=== PATIENT | male | born 1990 | race Caucasian/White ===

== ENCOUNTER 2017-07-17 11:02 | Emergency (ER) | payer OTHER ==
[~2017-07-17] VITALS: Ht 170.2 cm; Wt 83.9 kg
[2017-07-17 11:02] VITALS: BP 122/74
[2017-07-17] MEDS ORDERED: LIDOCAINE 0.5% HCL 50 ML VIAL ONE (11:27)
[2017-07-17] MEDS ORDERED: LIDOCAINE 1% INJ 50 ML MDV IJ ONE (11:30)
[2017-07-17] MEDS ORDERED: CEFAZOLIN 2 GM in IV D5W 100 ML IV ONE (11:30)
[2017-07-17] MEDS ORDERED: HYDROCODONE/APAP 10/325MG 1 EA TABLET ONE (13:18)
[2017-07-17] MEDS ORDERED: HYDROCODONE/APAP 10/325MG 1 EA TABLET PO ONE (13:30)
== END 2017-07-17 13:21 | disposition home or self-care (01) ==
LOC: ER 11:05
DX: S61.012A Laceration without foreign body of left thumb without damage to nail, initial encounter (principal); W45.8XXA Other foreign body or object entering through skin, initial encounter; Y93.89 Activity, other specified; Y92.89 Other specified places as the place of occurrence of the external cause; Y99.8 Other external cause status
CPT/HCPCS: 12002; 73140; 96365; 99284; A4606; J0690; J3490; J7060; Z7610; A6402

== ENCOUNTER 2017-07-25 19:10 | Emergency (ER) | payer OTHER ==
[~2017-07-25] VITALS: Ht 170.2 cm; Wt 83.9 kg
[2017-07-25 19:23] VITALS: BP 110/58
== END 2017-07-25 20:23 | disposition home or self-care (01) ==
LOC: ER 19:10
DX: S61.012D Laceration without foreign body of left thumb without damage to nail, subsequent encounter (principal); X58.XXXD Exposure to other specified factors, subsequent encounter
CPT/HCPCS: 99281; A4606; Z7610; Z7502

== ENCOUNTER 2019-09-22 02:17 | Emergency (ER) | payer OTHER ==
[~2019-09-22] VITALS: Ht 167.6 cm; Wt 84.8 kg
[2019-09-22 03:07] VITALS: BP 128/84
[2019-09-22] MEDS ORDERED: ALBUTEROL FS 2.5 MG/0.5 ML VIAL.NEB ONE (03:26)
[2019-09-22] MEDS ORDERED: ALBUTEROL FS 2.5 MG/0.5 ML VIAL.NEB NEB ONE (03:30)
--- NOTE | 2019-09-22 03:53 | NUR ---
Patient discharged to home in stable condition. Written and verbal after care instructions given. Patient verbalizes understanding of instruction.
== END 2019-09-22 03:53 | disposition home or self-care (01) ==
LOC: ER 02:17
DX: J06.9 Acute upper respiratory infection, unspecified (principal); F17.200 Nicotine dependence, unspecified, uncomplicated
CPT/HCPCS: 71045-TC